=== PATIENT | male | born 1970 | race Two or more races ===

== ENCOUNTER 2022-10-24 21:50 | Emergency (ER) | payer MEDICAID ==
--- NOTE | 2022-10-25 00:47 | NUR ---
CALLED TO TRIAGE NO RESPONSE
--- NOTE | 2022-10-25 01:02 | NUR ---
CALLED TO TRIAGE NO RESPONSE
--- NOTE | 2022-10-25 01:24 | NUR ---
CALLED TO TRIAGE NO RESPONSE
== END 2022-10-25 01:25 | disposition left against medical advice (07) ==
LOC: ER 22:04
DX: Z53.21 Procedure and treatment not carried out due to patient leaving prior to being seen by health care provider (principal)